=== PATIENT | female | born 1985 | race Caucasian/White ===

== ENCOUNTER 2019-02-18 07:31 | Emergency (ER) | payer OTHER ==
[2019-02-18 09:00] LABS: A TYPE INFLUENZA AG POSITIVE (NEGATIVE); B INFLUENZA AG NEGATIVE (NEGATIVE)
[2019-02-18] MEDS ORDERED: KETOROLAC TROMETHAMINE INJ/PF 30 MG/1 ML SDV IM ONE (09:14)
--- NOTE | 2019-02-18 09:23 | ER Document Report ---
ED General - General Chief Complaint: Flu Symptoms Stated Complaint: FEVER Time Seen by Provider: 02/18/19 08:42 Primary Care Provider: SRAVANI TOMLINSON PA [Primary Care Provider] - Follow up as needed TRAVEL OUTSIDE OF THE [place] IN LAST 30 DAYS: No - HPI Notes: Patient is a 33-year-old female that presents to the emergency department for chief complaint of influenza. Patient reports her daughter tested positive for influenza A. She states her for other people in the home with similar symptoms. She has had 3 days of fever, myalgias, cough and congestion. She does report intermittent nausea with a few episodes of vomiting. Patient also states she is currently about 6 weeks . She has seen Dr. Dueñas for confirmation of her . She denies any lower abdominal pain, cramping, vaginal bleeding and vaginal discharge. Past Medical History: Negative Past Surgical History: Negative Social History: Denies drugs alcohol and tobacco Family History: Reviewed and noncontributory for presenting illness Allergies: Reviewed, see documented allergy list. REVIEW OF SYSTEMS: CONSTITUTIONAL : fever chills No diaphoresis recent illness EENT: No vision changes congestion No sore throat CARDIOVASCULAR: No chest pain No palpitations RESPIRATORY: No shortness of breath cough No difficulty breathing GASTROINTESTINAL: No abdominal pain nausea vomiting No diarrhea GENITOURINARY: No dysuria No hematuria No difficulty urinating MUSCULOSKELETAL: No back pain leg pain arm pain SKIN: No rashes No lesions LYMPHATIC: No swollen, enlarged glands. NEUROLOGICAL: No lightheadedness No headache No weakness No paresthesias PSYCHIATRIC: No anxiety No depression PHYSICAL EXAMINATION: Vital signs reviewed, nursing noted reviewed. GENERAL: Ill-appearing, well-nourished and in no acute distress. HEAD: Atraumatic, normocephalic. EYES: Eyes appear normal, extraocular movements intact, sclera anicteric, conju nctiva are normal. ENT: Bilateral nasal mucosal edema and rhinorrhea, oropharynx clear without exudates. Mildly dry mucous membranes. NECK: Normal range of motion, supple without lymphadenopathy LUNGS: Breath sounds clear to auscultation bilaterally and equal. No wheezes rales or rhonchi. HEART: Tachycardic rate and regular rhythm without murmurs ABDOMEN: Soft, nontender, normoactive bowel sounds. No rebound, guarding, or rigidity. No masses appreciated. EXTREMITIES: Nontender, good range of motion, no pitting or edema. NEUROLOGICAL: No focal neurological deficits. Moves all extremities spontaneously Motor and sensory grossly intact on exam. PSYCH: Normal mood, normal affect. SKIN: Warm, Dry, normal turgor, no rashes or lesions noted on exposed skin - Related Data Allergies/Adverse Reactions: No Known Allergies Allergy (Verified 02/18/19 07:32) Past Medical History - Social History Smoking Status: Never Smoker Frequency of alcohol use: None Drug Abuse: None Family History: Reviewed & Not Pertinent Patient has suicidal ideation: No Patient has homicidal ideation: No Renal/ Medical History: Denies: Hx Peritoneal Dialysis Physical Exam - Vital signs Vitals: Temp Pulse Resp BP Pulse Ox 99.4 F 124 H 20 119/67 97 02/18/19 07:36 02/18/19 07:36 02/18/19 07:36 02/18/19 07:36 02/18/19 07:36 Course - Re-evaluation Re-evalutation: 02/18/19 09:27 Vitals reviewed. Nursing notes reviewed. Patient is breathing easily on room air and in no acute respiratory distress. She is afebrile at presentation but is mildly tachycardic. She states she had a fever of 103 prior to presenting in the ER. She did take a dose of Tylenol before coming in. She is positive for influenza A but is currently outside the window for Tamiflu. Because of her I did professor of counseling her on good hydration as well as taking Tylenol to manage her fevers. She was counseled on return precautions. Patient will follow with her PCP for close reevaluation and will return to the ER for new or worsening symptoms. She is stable at time of discharge and tolerating oral intake. Laboratory 02/18/19 02/18/19 02/18/19 07:40 07:40 08:20 Influenza A (Rapid) Cancelled POSITIVE Influenza B (Rapid) Cancelled NEGATIVE Group A Strep Rapid NEGATIVE - Vital Signs Vital signs: Temp Pulse Resp BP Pulse Ox 99.4 F 124 H 20 119/67 97 02/18/19 07:36 02/18/19 07:36 02/18/19 07:36 02/18/19 07:36 02/18/19 07:36 Discharge - Discharge Clinical Impression: Influenza A Condition: Stable Disposition: HOME, SELF-CARE Instructions: Influenza ([facility]) [id number] Additional Instructions: Please return to the emergency department if you have any worsening, or concern of your symptoms. Please return to the emergency department if you develop chest pain, difficulty breathing, severe abdominal pain, or ongoing vomiting. Please follow-up with your primary care physician in 2-3 days and any other recommended physicians. If prescribed, take all medications as directed. If you have any questions or concerns do not hesitate to return the emergency department for evaluation. Prescriptions: Benzonatate [Tessalon Perles 100 mg Capsule] 100 mg PO Q8HP PRN #30 capsule PRN Reason: Cough Naproxen 500 mg PO BID PRN #30 tablet.[address] FERRARA Reason: Fever and Pain Referrals: SRAVANI TOMLINSON PA [Primary Care Provider] - Follow up in 3-5 days
[2019-02-18 09:44] VITALS: BP 118/66
== END 2019-02-18 09:32 | disposition home or self-care (01) ==
LOC: ER 07:31
DX: O99.519 Diseases of the respiratory system complicating pregnancy, unspecified trimester (principal); J10.1 Influenza due to other identified influenza virus with other respiratory manifestations; O26.899 Other specified pregnancy related conditions, unspecified trimester; R50.9 Fever, unspecified; R00.0 Tachycardia, unspecified; R05 Cough; O21.9 Vomiting of pregnancy, unspecified; O99.89 Other specified diseases and conditions complicating pregnancy, childbirth and the puerperium; M79.606 Pain in leg, unspecified; M79.603 Pain in arm, unspecified; Z3A.00 Weeks of gestation of pregnancy not specified
CPT/HCPCS: 87070; 87804; 87880; 99283